=== PATIENT | female | born 1935 | race Caucasian/White ===

== ENCOUNTER → 2019-05-28 | Outpatient (CLI) | payer MEDICARE, OTHER ==
[2019-05-28 08:57] LABS: INR 1.01; PARTIAL THROMBOPLASTIN TIME 25.2 seconds (23.8-35.5); PROTHROMBIN TIME 13.8 seconds (11.9-14.5)
[2019-05-28 09:07] LABS: CREATININE, SERUM 1.06 mg/dL (0.57-1.11)
--- NOTE | 2019-05-28 10:29 | Diagnostic Imaging Report ---
Chest, 1 view, 05/28/2019. History: PICC placement. Comparison: None available. Findings: The cardiomediastinal silhouette and pulmonary vasculature are within normal limits for a portable exam. There is no focal consolidation or pleural effusion. Right upper extremity PICC terminates in the region of the SVC. There are no acute osseous or soft tissue abnormalities. Impression: No acute cardiopulmonary abnormality. Signed by: Anders Londono on 05/28/2019 10:26 AM
== END ==
LOC: DX 08:15
PROVIDERS: ATTEND Internal Medicine Infectious Disease
DX: M86.041 Acute hematogenous osteomyelitis, right hand (principal)
CPT/HCPCS: 36415; 36569; 71045; 82565; 84520; 85049; 85610; 85730